=== PATIENT | female | born 1945 | race Caucasian/White ===

== ENCOUNTER → 2023-07-08 11:50 | Outpatient (CLI) | payer MEDICARE, SELFPAY ==
[2023-07-08 17:47] LABS: Alanine Aminotransferase 29 U/L (12-78); Albumin Level 4.2 g/dl (3.5-5.0); Albumin/Globulin Ratio 2.1 (1.1-1.8); Alkaline Phosphatase 71 U/L (38-126); Aspartate Amino Transferase 47 U/L (14-36); Bilirubin,Total 1.8 mg/dl (0.2-1.3); Blood Urea Nitrogen 22 mg/dl (7-17); Calcium 9.1 mg/dl (8.4-10.2); Carbon Dioxide 26 mmol/L (22.0-30.0); Chloride 104 mmol/L (98-107); Estimated Glomerular Filt Rate 81 ml/min (>60); GFR (African American) 97 ML/MIN (>60); Glucose 97 mg/dl (74-100); Sodium 138 mmol/L (136-145); Total Protein,Serum 6.2 g/dl (6.3-8.2)
[2023-07-08 18:01] LABS: Basophils # 1.1 K/mm3 (0-0.2); Basophils % 1.2 % (0.1-2.0); Eosinophils # 0.5 K/mm3 (0.0-0.4); Eosinophils % 0.6 % (0.1-12.0); Hematocrit 40.1 % (37.0-47.0); Hemoglobin 13.8 g/dL (12.2-16.2); Lymphocytes # 84.6 K/mm3 (0.7-4.5); Lymphocytes % 92.2 % (10-50); Mean Corpuscular HGB Conc 34.4 g/dL (31.8-35.4); Mean Corpuscular Hemoglobin 32.9 pg (27.0-31.2); Mean Corpuscular Volume 95.6 fl (81-99); Monocytes # 0.8 K/mm3 (0.1-1.0); Monocytes % 0.9 % (1.7-9.3); Neutrophils # 4.8 K/mm3 (1.8-7.8); Platelet Count 141 K/mm3 (142-424); Red Blood Count 4.19 M/mm3 (4.20-5.40); Red Cell Distribution Width 14.8 % (11.5-17.5)
[2023-07-08 18:09] LABS: Neutrophils % 5.2 % (37.0-80.0)
[2023-07-08 18:19] LABS: Thyroid Stimulating Hormone 2.48 uIU/mL (0.465-4.68)
[2023-07-08 18:49] LABS: White Blood Count 91.8 K/mm3 (4.8-10.8)
[2023-07-08 18:50] LABS: Lymphocytes % 85 % (10-50); MANUAL DIFFERENTIAL MANUAL DIFFERENTIAL (MANUAL DIFF); Neutrophils % 7 % (42-76); Total Cells Counted 100
[2023-07-08 18:51] LABS: Platelet Estimate Normal; RBC Morphology Normal
== END ==
PROVIDERS: PCP Nurse Practitioner Family; Visit Provider Nurse Practitioner Family
DX: E03.9 Hypothyroidism, unspecified (principal)
CPT/HCPCS: 80053; 84443; 85007; 85025

== ENCOUNTER 2023-11-14 16:41 | Outpatient (CLI) | payer MEDICARE, SELFPAY ==
[2023-11-14 16:53] LABS: Basophils # 3.5 K/mm3 (0-0.2); Basophils % 3.6 % (0.1-2.0); Eosinophils # 0.4 K/mm3 (0.0-0.4); Eosinophils % 0.4 % (0.1-12.0); Hematocrit 46.1 % (37.0-47.0); Hemoglobin 14.3 g/dL (12.2-16.2); Lymphocytes % 92.3 % (10-50); Mean Corpuscular HGB Conc 30.9 g/dL (31.8-35.4); Mean Corpuscular Hemoglobin 31.3 pg (27.0-31.2); Mean Corpuscular Volume 101.4 fl (81-99); Mean Platelet Volume 8.7 fl (7.4-10.4); Neutrophils # 6.1 K/mm3 (1.8-7.8); Platelet Count 144 K/mm3 (142-424); Red Blood Count 4.55 M/mm3 (4.20-5.40)
[2023-11-14 17:00] LABS: Lactate Dehydrogenase 204 U/L (313-618)
[2023-11-14 17:11] LABS: Alanine Aminotransferase 41 U/L (12-78); Albumin Level 4.6 g/dl (3.5-5.0); Albumin/Globulin Ratio 2.2 (1.1-1.8); Alkaline Phosphatase 87 U/L (38-126); Anion Gap 10.6 mEq/L (5-15); Aspartate Amino Transferase 43 U/L (14-36); Bilirubin,Total 1.3 mg/dl (0.2-1.3); Blood Urea Nitrogen 25 mg/dl (7-17); Calcium 9.6 mg/dl (8.4-10.2); Carbon Dioxide 32 mmol/L (22.0-30.0); Chloride 103 mmol/L (98-107); Chol/HDL Ratio 6.6 (1-3.5); Cholesterol 244 mg/dl (140-200); Estimated Glomerular Filt Rate 69 ml/min (>60); GFR (African American) 84 ML/MIN (>60); Globulin 2.1 g/dL (1.3-3.2); Glucose 92 mg/dl (74-100); HDL Cholesterol 37 mg/dl (40-60); Potassium 4.6 mmoL/L (3.5-5.1); Sodium 141 mmol/L (136-145); Total Protein,Serum 6.7 g/dl (6.3-8.2); Triglycerides 128 mg/dl (30-150); VLDL Cholesterol 26 mg/dL (0-40)
[2023-11-14 17:17] LABS: Neutrophils % 6.4 % (37.0-80.0)
[2023-11-14 17:22] LABS: Direct LDL Cholesterol 145.11 mg/dL (100-129); White Blood Count 96.5 K/mm3 (4.8-10.8)
[2023-11-14 17:23] LABS: MANUAL DIFFERENTIAL MANUAL DIFFERENTIAL (MANUAL DIFF)
[2023-11-14 17:43] LABS: Thyroid Stimulating Hormone 0.09 uIU/mL (0.465-4.68)
[2023-11-14 18:13] LABS: Lymphocytes % 67 % (10-50); Monocytes % 1 % (2-9); Neutrophils % 12 % (42-76); Total Cells Counted 100
[2023-11-14 18:14] LABS: Hypochromasia 1+; Microcytosis 1+; Platelet Estimate Slight Decrease
== END 2023-11-14 23:59 ==
LOC: LAB.DROPOF 16:41
PROVIDERS: Internal Medicine Medical Oncology; PCP Family Medicine; Visit Provider Family Medicine
DX: C95.10 Chronic leukemia of unspecified cell type not having achieved remission (principal); E03.9 Hypothyroidism, unspecified; F32.A Depression, unspecified
CPT/HCPCS: 80053; 80061; 83615; 84443; 85007; 85025

== ENCOUNTER 2024-01-14 18:00 | Outpatient (CLI) | payer MEDICARE, SELFPAY ==
[2024-01-14 17:41] LABS: Thyroid Stimulating Hormone 0.11 uIU/mL (0.465-4.68)
== END 2024-01-14 23:59 | disposition home or self-care (01) ==
LOC: LAB.DROPOF 01-15 13:00
PROVIDERS: PCP Family Medicine; Visit Provider Family Medicine
DX: E03.9 Hypothyroidism, unspecified (principal)
CPT/HCPCS: 84443

== ENCOUNTER 2024-05-04 10:54 | Outpatient (CLI) | payer MEDICARE, SELFPAY ==
[2024-05-04 17:36] LABS: Thyroid Stimulating Hormone 0.23 uIU/mL (0.465-4.68)
== END 2024-05-04 23:59 | disposition home or self-care (01) ==
LOC: LAB.DROPOF 05-05 10:55
PROVIDERS: PCP Family Medicine; Visit Provider Family Medicine
DX: E03.9 Hypothyroidism, unspecified (principal)
CPT/HCPCS: 84443

== ENCOUNTER 2024-06-09 11:44 | Outpatient (CLI) | payer MEDICARE, SELFPAY ==
[2024-06-09 12:09] LABS: Basophils # 4.7 K/mm3 (0-0.2); Basophils % 4.2 % (0.1-2.0); Eosinophils # 0.6 K/mm3 (0.0-0.4); Eosinophils % 0.5 % (0.1-12.0); Hematocrit 42.3 % (37.0-47.0); Hemoglobin 13.3 g/dL (12.2-16.2); Lymphocytes # 103.7 K/mm3 (0.7-4.5); Lymphocytes % 94.1 % (10-50); Mean Corpuscular HGB Conc 31.6 g/dL (31.8-35.4); Mean Corpuscular Hemoglobin 31.9 pg (27.0-31.2); Mean Corpuscular Volume 101.2 fl (81-99); Mean Platelet Volume 7.7 fl (7.4-10.4); Monocytes # 1.2 K/mm3 (0.1-1.0); Monocytes % 1.1 % (1.7-9.3); Neutrophils # 4.8 K/mm3 (1.8-7.8); Platelet Count 149 K/mm3 (142-424); Red Blood Count 4.18 M/mm3 (4.20-5.40); Red Cell Distribution Width 14.3 % (11.5-17.5)
[2024-06-09 12:14] LABS: Neutrophils % 4.3 % (37.0-80.0)
[2024-06-09 12:16] LABS: White Blood Count 110.2 K/mm3 (4.8-10.8)
[2024-06-09 12:17] LABS: MANUAL DIFFERENTIAL MANUAL DIFFERENTIAL (MANUAL DIFF)
[2024-06-09 12:20] LABS: Albumin Level 4.4 g/dl (3.5-5.0); Chloride 109 mmol/L (98-107); Sodium 140 mmol/L (136-145)
[2024-06-09 12:21] LABS: Potassium 4.6 mmoL/L (3.5-5.1)
[2024-06-09 12:23] LABS: Alanine Aminotransferase 24 U/L (12-78); Albumin/Globulin Ratio 2.2 (1.1-1.8); Alkaline Phosphatase 87 U/L (38-126); Anion Gap 6.6 mEq/L (5-15); Aspartate Amino Transferase 36 U/L (14-36); Blood Urea Nitrogen 17 mg/dl (7-17); Carbon Dioxide 29 mmol/L (22.0-30.0); Estimated Glomerular Filt Rate 69 ml/min (>60); GFR (African American) 83 ML/MIN (>60); Total Protein,Serum 6.4 g/dl (6.3-8.2)
[2024-06-09 12:24] LABS: Calcium 9.9 mg/dl (8.4-10.2); Glucose 68 mg/dl (74-100)
[2024-06-09 12:39] LABS: Lymphocytes % 90 % (10-50); Macrocytosis 1+; Monocytes % 1 % (2-9); Neutrophils % 9 % (42-76); Platelet Estimate Normal; Total Cells Counted 100
[2024-06-09 13:55] LABS: Lactate Dehydrogenase 202 U/L (313-618)
== END 2024-06-09 23:59 | disposition home or self-care (01) ==
LOC: LAB 11:45
PROVIDERS: PCP Family Medicine; Visit Provider Internal Medicine Medical Oncology
DX: C91.10 Chronic lymphocytic leukemia of B-cell type not having achieved remission (principal)
CPT/HCPCS: 36415; 80053; 83615; 85007; 85025; 85027

== ENCOUNTER 2025-01-07 10:26 | Outpatient (CLI) | payer MEDICARE, SELFPAY ==
[2025-01-07 10:51] LABS: Basophils # 0.2 K/mm3 (0-0.2); Basophils % 0.2 % (0.1-2.0); Eosinophils # 0.4 Kmm3 (0.0-0.4); Eosinophils % 0.4 % (0.1-12.0); Hematocrit 39.8 % (37.0-47.0); Hemoglobin 12.5 g/dL (12.2-16.2); Lymphocytes # 94.2 K/mm3 (0.7-4.5); Lymphocytes % 94.4 % (10-50); Mean Corpuscular HGB Conc 31.4 g/dL (31.8-35.4); Mean Corpuscular Hemoglobin 30.7 pg (27.0-31.2); Mean Corpuscular Volume 97.8 fl (81-99); Mean Platelet Volume 9.9 fl (7.4-10.4); Monocytes # 1.7 K/mm3 (0.1-1.0); Monocytes % 1.7 % (1.7-9.3); Neutrophils # 3.2 K/mm3 (1.8-7.8); Neutrophils % 3.2 % (37.0-80.0); Nucleated Red Blood Cells # 0 10^3/uL; Nucleated Red Blood Cells % 0 %; Platelet Count 122 K/mm3 (142-424); Red Blood Count 4.07 M/mm3 (4.20-5.40); Red Cell Distribution Width 14.6 % (11.5-17.5); Red Cell Distribution Width-SD 52.1 fL
[2025-01-07 10:54] LABS: Alanine Aminotransferase 35 U/L (12-78); Albumin/Globulin Ratio 1.6 (1.1-1.8); Alkaline Phosphatase 65 U/L (38-126); Anion Gap 11.6 mEq/L (5-15); Aspartate Amino Transferase 50 U/L (14-36); Bilirubin,Total 1.3 mg/dl (0.2-1.3); Blood Urea Nitrogen 18 mg/dl (7-17); Carbon Dioxide 29 mmol/L (22.0-30.0); Chloride 106 mmol/L (98-107); Estimated Glomerular Filt Rate 80 ml/min (>60); GFR (African American) 97 ML/MIN (>60); Globulin 2.5 g/dL (1.3-3.2); Glucose 86 mg/dl (74-100); Lactate Dehydrogenase 209 U/L (313-618); Potassium 4.6 mmoL/L (3.5-5.1); Sodium 142 mmol/L (136-145); Total Protein,Serum 6.5 g/dl (6.3-8.2)
[2025-01-07 13:39] LABS: White Blood Count 99.9 K/mm3 (4.8-10.8)
[2025-01-07 13:40] LABS: MANUAL DIFFERENTIAL MANUAL DIFFERENTIAL (MANUAL DIFF)
[2025-01-07 15:15] LABS: Lymphocytes % 86 % (10-50); Monocytes % 5 % (2-9); Neutrophils % 9 % (42-76); Total Cells Counted 100
[2025-01-07 15:16] LABS: Ovalocytes 1+; Platelet Estimate Normal; Poikilocytosis 1+; Target Cells 1+
== END 2025-01-07 23:59 | disposition home or self-care (01) ==
LOC: LAB 10:27
PROVIDERS: PCP Family Medicine; Visit Provider Internal Medicine Medical Oncology
DX: C91.10 Chronic lymphocytic leukemia of B-cell type not having achieved remission (principal)
CPT/HCPCS: 36415; 80053; 83615; 85007; 85025; 85027

== ENCOUNTER 2025-07-09 12:45 | Outpatient (CLI) | payer MEDICARE, SELFPAY ==
[2025-07-09 13:33] LABS: Hematocrit 43.9 % (37.0-47.0); Hemoglobin 13.9 g/dL (12.2-16.2); Immature Granulocytes % 0.2 %; Mean Corpuscular HGB Conc 31.7 g/dL (31.8-35.4); Mean Corpuscular Hemoglobin 30.8 pg (27.0-31.2); Mean Corpuscular Volume 97.1 fl (81-99); Nucleated Red Blood Cells % 0 %; Platelet Count 149 K/mm3 (142-424); Red Blood Count 4.52 M/mm3 (4.20-5.40); Red Cell Distribution Width-SD 50.6 fL
[2025-07-09 13:40] LABS: White Blood Count 160.0 K/mm3 (4.8-10.8)
[2025-07-09 14:20] LABS: Albumin Level 4.1 g/dl (3.5-5.0); Chloride 102 mmol/L (98-107); Sodium 137 mmol/L (136-145)
[2025-07-09 14:21] LABS: Potassium 3.8 mmoL/L (3.5-5.1)
[2025-07-09 14:23] LABS: Alanine Aminotransferase 43 U/L (12-78); Albumin/Globulin Ratio 1.8 (1.1-1.8); Alkaline Phosphatase 91 U/L (38-126); Anion Gap 11.8 mEq/L (5-15); Aspartate Amino Transferase 48 U/L (14-36); Bilirubin,Total 1.8 mg/dl (0.2-1.3); Blood Urea Nitrogen 16 mg/dl (7-17); Calcium 9.5 mg/dl (8.4-10.2); Carbon Dioxide 27 mmol/L (22.0-30.0); Creatinine,Serum 1.00 mg/dl (0.52-1.04); Estimated Glomerular Filt Rate 53 ml/min (>60); GFR (African American) 64 ML/MIN (>60); Globulin 2.3 g/dL (1.3-3.2); Glucose 77 mg/dl (74-100); Total Protein,Serum 6.4 g/dl (6.3-8.2)
[2025-07-09 14:46] LABS: Anisocytosis 1+; Macrocytosis 1+; Microcytosis 1+; Ovalocytes 1+; Poikilocytosis 1+; Spherocytes 1+; Tear Drop Cells 1+; Total Cells Counted 100
[2025-07-09 14:48] LABS: Polychromasia 1+
== END 2025-07-09 23:59 | disposition home or self-care (01) ==
LOC: LAB 12:46
PROVIDERS: PCP Family Medicine; Visit Provider Internal Medicine Medical Oncology
DX: C91.10 Chronic lymphocytic leukemia of B-cell type not having achieved remission (principal)
CPT/HCPCS: 36415; 80053; 83615; 85007; 85025